=== PATIENT | male | born 1985 | race African-American/Black ===

== ENCOUNTER 2025-10-20 01:03 | Emergency (ER) | payer SELFPAY ==
[~2025-10-20] VITALS: Ht 182.9 cm; Wt 102.0 kg
[2025-10-20 01:05] VITALS: TEMP 98.3; O2SAT 99
[2025-10-20 02:26] VITALS: BP 148/92; PULSE 88; RESP 18
[2025-10-20] MEDS: LIDOCAINE 5% PATCH TOP SCH (02:26)
[2025-10-20] MEDS: KETOROLAC 30MG/ML VIAL IM ONE (02:26)
[2025-10-20] MEDS ORDERED: LIDO-53 TP (02:51)
[2025-10-20] MEDS ORDERED: CYCL7.5T25 MT (02:51)
== END 2025-10-20 03:06 | disposition home or self-care (01) ==
LOC: ER 01:03
DX: M54.50 Low back pain, unspecified (principal)
CPT/HCPCS: 99285; 72131; 72220; 96372; J1885